=== PATIENT | female | born 1960 | race Hispanic/Latino ===

== ENCOUNTER 2025-08-13 12:46 | Emergency (ER) | payer MEDICARE ==
[~2025-08-13] VITALS: Ht 149.9 cm; Wt 73.5 kg
[2025-08-13 13:47] LABS: BASOPHILS 0.5 % (0.1-1.2); EOSINOPHILS 2.5 % (0.7-5.8); LYMPHOCYTES 50.6 % (19.3-51.7); MCH 27.9 PG (25.6-32.2); MCHC 33.3 g/dL (32.2-35.5); MCV 83.8 fL (79.4-94.8); MONOCYTES 9.8 % (4.7-12.5); NEUTROPHILS 36.4 % (34.0-71.1); RBC 4.37 M/uL (3.93-5.22)
[2025-08-13] MEDS ORDERED: HYDROmorphone HCL 1 MG/ML SYR IV PRN (14:00)
[2025-08-13] MEDS ORDERED: PANTOPRAZOLE SODIUM 40 MG/10 ML VIAL IV ONE (14:00)
[2025-08-13 14:12] LABS: ALT (SGPT) 26.0 U/L (14-59); AST (SGOT) 22.0 U/L (15-37); GLOMERULAR FILTRATION RATE,EST 71.0 mL/min (>60); PROTEIN, TOTAL 7.5 g/dL (6.4-8.2); UREA NITROGEN 19.0 mg/dL (7-18)
[2025-08-13] MEDS ORDERED: OMEPRAZOLE20 MG PO (15:25)
[2025-08-13] MEDS ORDERED: ONDANSETRON ODT8 MG PO (15:25)
[2025-08-13 15:45] VITALS: BP 138/56
--- NOTE | 2025-08-15 21:53 | EKG ---
[facility] [address] [facility] [place] [address] Signed Normal sinus rhythm Normal ECG No previous ECGs available Confirmed by Laura Sahu MD () on 08/15/2025 9:53:25 PM Electronically Signed By: LAURA SAHU MD [id number] PATIENT NAME: KORTNEYRYANNANCY VERA ISLAS Electrocardiogram DATE OF : 60 PHYSICIAN: LAURA SAHU MD REPORT #: [id number] REPORT IS CONFIDENTIAL AND NOT TO BE RELEASED WITHOUT AUTHORIZATION
== END 2025-08-13 15:54 | disposition home or self-care (01) ==
LOC: ED 12:46
PROVIDERS: Podiatrist Foot & Ankle Surgery
DX: K29.00 Acute gastritis without bleeding (principal); I25.2 Old myocardial infarction; Z88.5 Allergy status to narcotic agent; Z88.6 Allergy status to analgesic agent
CPT/HCPCS: 36415; 71045; 80053; 83690; 84484; 85025; 85379; 93005; 93010; 96374; 96375; 99285-25; J1171; J2405; J2470